=== PATIENT | female | born 1985 | race Caucasian/White ===

== ENCOUNTER 2016-10-21 16:02 | Inpatient (IN) | payer MEDICAID ==
[~2016-10-21] VITALS: Ht 154.9 cm; Wt 74.7 kg
[~2016-10-21 16:02] MED LIST: FERR240T9 PO; PREN1TAB17 PO
[2016-10-21 16:22] VITALS: Ht 154.9 cm; Wt 74.7 kg
[2016-10-21 16:23] VITALS: BP 130/79; PULSE 80; RESP 20
[2016-10-21] MEDS ORDERED: LACTATED RINGER'S 1,000 ML IV SCH (17:18)
[2016-10-21] MEDS ORDERED: OXYTOCIN 30 UNITS/LR 500 ML IV PRN ×2 (17:30→20:30)
[2016-10-21] MEDS ORDERED: LIDOCAINE 1% (MPF) 30 ML INJ INJ PRN (17:30)
[2016-10-21] MEDS ORDERED: ACETAMINOPHEN/CODEINE #3 TAB PO PRN (17:30)
[2016-10-21] MEDS ORDERED: BUTORPHANOL 2 MG INJ IV PRN (17:30)
[2016-10-21] MEDS ORDERED: METHYLERGONOVINE 0.2 MG INJ IM PRN ×2 (17:30→20:30)
[2016-10-21] MEDS ORDERED: CARBOPROST 250 MCG INJ IM PRN ×2 (17:30→20:30)
[2016-10-21] MEDS ORDERED: OXYTOCIN 30 UNITS/LR 500 ML IV SCH ×3 (17:30→20:04)
[2016-10-21] MEDS ORDERED: AMPICILLIN 2 GM/NS (PMX) 100 ML IV ONE (17:30)
[2016-10-21] MEDS ORDERED: IBUPROFEN 600 MG TAB PO PRN (17:30)
[2016-10-21] MEDS ORDERED: MISOPROSTOL 200 MCG TAB PR PRN ×2 (17:30→20:30)
[2016-10-21 17:55] LABS: ADD SCAN DIFF NO
[2016-10-21 17:58] LABS: BASOPHILS % 0.2 % (0.0-2.0); EOSINOPHILS # 0.1 10^3/ul (0.0-0.5); EOSINOPHILS % 0.5 % (0.0-7.0); HEMATOCRIT 32.3 % (37.0-47.0); HEMOGLOBIN 9.7 g/dl (12.0-16.0); LYMPHOCYTES # 3.5 10^3/ul (0.8-2.9); LYMPHOCYTES % 27.3 % (15.0-51.0); MEAN CORPUSCULAR VOLUME 73.4 fl (82.0-101.0); MEAN PLATELET VOLUME 9.8 fl (7.4-10.4); MONOCYTE # 0.6 10^3/ul (0.3-0.9); MONOCYTES % 4.7 % (0.0-11.0); NEUTROPHIL # 8.6 10^3/ul (1.6-7.5); NEUTROPHILS % 66.6 % (39.0-77.0); NUCLEATED RED BLOOD CELLS% 0.2 /100WBC (0.0-0.0); PLATELET COUNT 407 10^3/UL (140-415); RED CELL DISTRIBUTION WIDTH 17.9 % (11.5-14.5); WHITE BLOOD COUNT 12.9 10^3/ul (4.8-10.8)
[2016-10-21] MEDS ORDERED: LACTATED RINGER'S 1,000 ML IV PRN (18:00)
[2016-10-21 18:08] LABS: INR 0.9; PROTIME 12.1 Sec (12.2-14.2); PT RATIO 0.9
[2016-10-21] MEDS ORDERED: FENTAnyl 2MCG/ML-ROPIV 0.2% 100 ML ONE (18:54)
--- NOTE | 2016-10-21 20:15 | LDN ---
Date/Time of Note Date/Time of Note DATE: 10/21/16 TIME: 20:12 Delivery Summary of a viable baby boy over an intact perineum, weighing 3170 grams or 7#, 19 " long, and with Apgars of 9/9. Placenta Delivered: Spontaneously (Trailing membranes had to be removed manually.) Meconium: none Perineum intact?: Yes Anesthesia type: Epidural Estimated blood loss: 200 Sponge & Needle done & correct: Yes All needle counts correct: Yes Any foreign bodies felt in the: No (vagina) Problems: Infant Delivery Information Sex Infant Sex: male Apgars 1 Minute: 9 5 Minute: 9 Suctioning Nose & mouth suctioned at héctor: No Delee suction performed: No Umbilical Cord Umbilical cord with: 3 Vessels Cord presentations: no nuchal cord Cord Blood was obtained: Yes Mother & Baby Disposition Disposition Mom & Baby to Maternity; Good: Yes Baby to NICU: No THOM MEDINA MD Oct 21, 2016 20:15
--- NOTE | 2016-10-21 20:21 | HP ---
Date/Time of Note Date/Time of Note DATE: 10/21/16 TIME: 20:16 OB - History Hx of Present Free Text/Dictation 31 y.o. with an IU at 38w 6d came in with UC's since 0300 and a VE of 100% /3cm. Admitted for expectant management and progressed on own. Estimated Due Date: Oct 29, 2016 : 4 Para: 3 Care: Good Care (but prenatals not available.) Ultrasounds: Normal mid trimester US Obstetrical Complications: None Medical Complications: None Past Family/Social History * record not available so reviewed with pt only. Blood Type: Unknown Rubella: unknown RPR/VDRL: Unknown GBS Status: Unknown HBsAG: Unknown OB Admission Exam Vital Signs Vital Signs Vital Signs Date Time Temp Pulse Resp B/P Pulse Ox O2 Delivery O2 Flow Rate FiO2 10/21/16 16:23 98.1 80 20 130/79 100 Physical Exam HEENT: WNL Heart: Rhythm Normal Abdomen: WNL Extremities: Normal Reflexes: Normal Cervical Dilatation: 3cm Effacement: 100% Station: -3 Membranes: Intact Amniotic Fluid: Clear Heart Rate: 140's Accelerations: Accelerations Present Decelerations: No Decelerations Varibility: Moderate Contractions on Admission: < 5 Minutes Apart Last 72 hours Lab Results CBC & BMP 10/21/16 17:45 OB Assessment/Plan Reason for admission: active labor Plan: Expectant Management THOM MEDINA MD Oct 21, 2016 20:21
[2016-10-21] MEDS ORDERED: OXYCODONE/ASPIRIN (4.88/325) TAB PO PRN (20:30)
[2016-10-21] MEDS ORDERED: LANOLIN 7 GM TUBE TOP PRN (20:30)
[2016-10-21] MEDS ORDERED: FENTAnyl 2MCG/ML-ROPIV 0.2% 100 ML BAG EPI SCH (21:00)
[2016-10-21] MEDS ORDERED: NALOXONE (0.4 MG/ML) INJ IV PRN (21:00)
[2016-10-21] MEDS ORDERED: AMPICILLIN 1 GM/NS (PMX) 50 ML IV SCH (21:30)
[2016-10-21 21:45] VITALS: BP 128/63; PULSE 73; RESP 18
[2016-10-22] VITALS: BP 115/57; PULSE 83; RESP 18
[2016-10-22] MEDS: IBUPROFEN 600 MG TAB PO PRN ×4 (00:36→17:46)
[2016-10-22] MEDS: LACTATED RINGER'S 1,000 ML IV* SCH ×4 (04:04→21:53)
[2016-10-22 07:45] VITALS: BP 108/61; PULSE 61; RESP 19
[2016-10-22 08:15] LABS: ADD SCAN DIFF NO
[2016-10-22 08:19] LABS: BASOPHILS % 0.2 % (0.0-2.0); EOSINOPHILS # 0.1 10^3/ul (0.0-0.5); EOSINOPHILS % 0.4 % (0.0-7.0); HEMATOCRIT 28.7 % (37.0-47.0); HEMOGLOBIN 8.5 g/dl (12.0-16.0); LYMPHOCYTES # 2.7 10^3/ul (0.8-2.9); MEAN CORPUSCULAR HGB CONC 29.6 g/dl (32.0-37.0); MEAN CORPUSCULAR VOLUME 74.4 fl (82.0-101.0); MONOCYTE # 0.8 10^3/ul (0.3-0.9); MONOCYTES % 5.9 % (0.0-11.0); NEUTROPHIL # 9.9 10^3/ul (1.6-7.5); PLATELET COUNT 336 10^3/UL (140-415); RED BLOOD COUNT 3.86 10^6/ul (4.20-5.40); RED CELL DISTRIBUTION WIDTH 17.9 % (11.5-14.5); WHITE BLOOD COUNT 13.6 10^3/ul (4.8-10.8)
--- NOTE | 2016-10-22 15:53 | DS ---
Date/Time of Note Date/Time of Note home next day DATE: 10/22/16 TIME: 15:52 Obstetrical Discharge Record Final Diagnosis Final Diagnosis: Term delivered Other Final Diagnosis S/P vaginal delivery Vaginal Delivery Obstetrical Delivery: Spontaneous Condition on Discharge Physical Assessment Last Vitals: see nurses notes Voiding: Yes Bowel Movement: Yes Breast: Soft, non-tender, Filling Fundus: Firm Abdomen and Incision: soft BS + Episiotomy: NA Calf Tenderness: No Patient Condition: Good JENNIFER CHURCHILL MD Oct 22, 2016 15:53
--- NOTE | 2016-10-22 15:55 | PD.PPDC ---
CHECK WEIGHER Discharge Instruction Provider Information Physician Information 31 y/o female had vaginal delivery Diagnosis Final Diagnosis: S/P vaginal delivery Condition Patient Condition: Good Diet Diet: Resume Regular Diet Activity/Restrictions Activity: Normal Activity May Shower Restrictions: Nothing in the Vagina Return to Work or School: Dec 10, 2016 Follow-up Follow-up with Physician: 4, Week/Weeks (in clinic) Return to clinic for OB Instructions: Breast Tenderness Depression JENNIFER CHURCHILL MD Oct 22, 2016 15:55
[2016-10-22] MEDS ORDERED: IBUP-1542 PO (15:56)
[2016-10-22 16:00] VITALS: BP 111/64; PULSE 78; RESP 19
[2016-10-22 19:50] VITALS: BP 110/60; PULSE 91; RESP 18
[2016-10-23 04:15] VITALS: BP 92/50; PULSE 89; RESP 18
[2016-10-23 08:15] VITALS: BP 112/68; PULSE 80; RESP 18
[2016-10-23] MEDS ORDERED: DIPHTH/TET/ACEL PERTUSS (ADULT) 0.5 ML VIAL IM* ONE (09:00)
[2016-10-23] MEDS: IBUPROFEN 600 MG TAB PO PRN ×2 (12:34→18:16)
[2016-10-23 16:45] VITALS: BP 124/68; PULSE 75; RESP 18
== END 2016-10-23 20:20 | disposition home or self-care (01) | DRG 775 ==
LOC: OBT 16:02 → L-D 16:03 → OBT 17:00 → L-D 17:00 → PP1 21:46
PROVIDERS: ADMIT Obstetrics & Gynecology; ATTEND Obstetrics & Gynecology
PROC: 10E0XZZ Delivery of Products of Conception, External Approach (ICD-10-PCS; principal; 2016-10-21)
PROC: 3E00X4Z Introduction of Serum, Toxoid and Vaccine into Skin and Mucous Membranes, External Approach (ICD-10-PCS; 2016-10-23)
DX: O80 Encounter for full-term uncomplicated delivery (principal); Z23 Encounter for immunization; Z3A.38 38 weeks gestation of pregnancy; Z37.0 Single live birth
CPT/HCPCS: 62319; 85025; 85610; 85730; 86592; 86900; 86901; 87340; 90715; G0463; J0290; J2590; J3010; J7120

== ENCOUNTER 2016-11-10 17:32 | Emergency (ER) | payer MEDICAID ==
[~2016-11-10] VITALS: Ht 157.5 cm; Wt 70.0 kg
[~2016-11-10 17:32] MED LIST changes: +IBUP-1542 PO
[2016-11-10 17:34] VITALS: Ht 157.5 cm; Wt 70.0 kg
[2016-11-10] MEDS ORDERED: SOD CHLORIDE 0.9% 1,000 ML IV STA (18:35)
[2016-11-10] MEDS ORDERED: morphine 4 MG/ML VIAL IV STA (18:35)
[2016-11-10] MEDS ORDERED: FAMOTIDINE 20 MG TAB PO STA (18:35)
[2016-11-10] MEDS ORDERED: ONDANSETRON 4 MG INJ IV STA (18:35)
[2016-11-10 19:04] LABS: ADD SCAN DIFF NO
[2016-11-10 19:05] LABS: BASOPHILS % 0.2 % (0.0-2.0); EOSINOPHILS # 0.2 10^3/ul (0.0-0.5); EOSINOPHILS % 2.3 % (0.0-7.0); HEMATOCRIT 33.6 % (37.0-47.0); LYMPHOCYTES # 1.9 10^3/ul (0.8-2.9); LYMPHOCYTES % 28.8 % (15.0-51.0); MEAN CORPUSCULAR HEMOGLOBIN 22.2 pg (29.0-33.0); MEAN CORPUSCULAR HGB CONC 29.8 g/dl (32.0-37.0); MEAN CORPUSCULAR VOLUME 74.7 fl (82.0-101.0); MEAN PLATELET VOLUME 9.8 fl (7.4-10.4); MONOCYTE # 0.5 10^3/ul (0.3-0.9); MONOCYTES % 7.8 % (0.0-11.0); NEUTROPHILS % 60.6 % (39.0-77.0); PLATELET COUNT 390 10^3/UL (140-415); RED CELL DISTRIBUTION WIDTH 18.7 % (11.5-14.5); WHITE BLOOD COUNT 6.6 10^3/ul (4.8-10.8)
[2016-11-10 19:14] LABS: ADD UMIC YES; URINE BILIRUBIN (Dip) NEGATIVE (NEGATIVE); URINE BLOOD (Dip) 1+ (NEGATIVE); URINE GLUCOSE (Dip) NEGATIVE (NEGATIVE); URINE KETONES (Dip) NEGATIVE (NEGATIVE); URINE LEUKOCYTE ESTERASE (Dip) 2+ (NEGATIVE); URINE NITRITE (Dip) NEGATIVE (NEGATIVE); URINE TOTAL PROTEIN (Dip) TRACE (NEGATIVE); URINE UROBILINOGEN (Dip) 0.2 E.U./dL (0.1-1.0)
[2016-11-10 19:15] LABS: ALBUMIN 3.6 g/dl (3.3-4.9); URINE COLOR YELLOW (YELLOW)
[2016-11-10 19:16] LABS: POTASSIUM 3.5 mmol/L (3.5-5.1)
--- NOTE | 2016-11-10 19:16 | ERD ---
ER Documentation Chief Complaint Date/Time DATE: 11/10/16 TIME: 19:13 Chief Complaint ap x 3 days HPI This is a 31-year-old female presents to the ER with mid abdominal pain for the last 3 days. Patient states that she has had nausea and vomiting. Vomiting is nonbilious nonbloody. She denies any diarrhea. History patient does admit to fever and chills. Pain is crampy and intermittent, it is nonradiating. Pain can be severe at times rated as 5 out of 10. Patient has not traveled anywhere. There are no sick contacts at home. Patient had a baby 3 weeks ago, she denies any pelvic pain, urinary frequency or dysuria, vaginal bleeding. ROS 12 point review of systems was done, all negative except per HPI. Medications Home Meds Active Scripts Nitrofurantoin Monohyd Macrocr* (Macrobid*) 100 Mg Capsr, 100 MG PO BID for 7 Days, CAP Prov:COLTEN GLASS 11/10/16 Dicyclomine Hcl* (Bentyl*) 10 Mg Capsule, 10 MG PO QID for 5 Days, CAP Prov:COLTEN GLASS 11/10/16 Ondansetron Hcl* (Zofran*) 4 Mg Tablet, 4 MG PO Q6H for NAUSEA AND/OR VOMITING, #30 TAB Prov:COLTEN GLASS 11/10/16 Ibuprofen* (Ibuprofen*) 600 Mg Tablet, 600 MG PO Q6 Y for PAIN LEVEL 4-6, #20 TAB 0 Refills Prov:JENNIFER CHURCHILL MD 10/22/16 Reported Medications Ferrous Gluconate (Iron) 1 Tab Tablet, 1 TAB PO 12/09/14 Vit-Iron Fumarate-FA ( Tablet) 1 Each Tablet, 1 TAB PO DAILY, TAB 12/09/14 Allergies Allergies: Coded Allergies: No Known Allergy (Unverified , 12/09/14) PMhx/Soc Medical and Surgical Hx: pt denies Medical Hx, pt denies Surgical Hx History of Surgery: No Anesthesia Reaction: No Hx Neurological Disorder: No Hx Respiratory Disorders: No Hx Cardiac Disorders: No Hx Psychiatric Problems: No Hx Miscellaneous Medical Probl: No Hx Alcohol Use: No Hx Substance Use: No Hx Tobacco Use: No Smoking Status: Never smoker Physical Exam Vitals Vital Signs Date Time Temp Pulse Resp B/P Pulse Ox O2 Delivery O2 Flow Rate FiO2 11/10/16 17:34 98.5 94 20 120/60 99 Physical Exam GENERAL: The patient is well developed and appropriate for usual state of health , in no apparent distress. HEENT: Atraumatic. CHEST: Clear to auscultation bilaterally. There are no rales, wheezes or rhonchi. HEART: Regular rate and rhythm. No murmurs, clicks, rubs or gallops. ABDOMEN: Soft and nondistended, patient is tender to palpation all 4 quadrants.. Good bowel sounds. No rebound or guarding. No gross peritonitis. No gross organomegaly or masses. No Avila sign or McBurney point tenderness. BACK: No midline or flank tenderness. NEURO: Alert and oriented. SKIN: The skin is warm and dry. Result Diagram: 11/10/166 11/10/166 Results 24 hrs Laboratory Tests Test 11/10/16 18:46 White Blood Count 6.610^3/ul Red Blood Count 4.5010^6/ul Hemoglobin 10.0g/dl Hematocrit 33.6% Mean Corpuscular Volume 74.7fl Mean Corpuscular Hemoglobin 22.2pg Mean Corpuscular Hemoglobin Concent 29.8g/dl Red Cell Distribution Width 18.7% Platelet Count 52249^3/UL Mean Platelet Volume 9.8fl Neutrophils % 60.6% Lymphocytes % 28.8% Monocytes % 7.8% Eosinophils % 2.3% Basophils % 0.2% Nucleated Red Blood Cells % 0.0/100WBC Neutrophils # 4.010^3/ul Lymphocytes # 1.910^3/ul Monocytes # 0.510^3/ul Eosinophils # 0.210^3/ul Basophils # 0.010^3/ul Nucleated Red Blood Cells # 0.010^3/ul Urine Color YELLOW Urine Clarity SLIGHTLY CLOUDY Urine pH 5.5 Urine Specific [place] 1.025 Urine Ketones NEGATIVE Urine Nitrite NEGATIVE Urine Bilirubin NEGATIVE Urine Urobilinogen 0.2 E.U./dL Urine Leukocyte Esterase 2+ Urine Microscopic RBC 2-5/HPF Urine Microscopic WBC 25-50/HPF Urine Squamous Epithelial Cells FEW Urine Bacteria RARE Urine Hemoglobin 1+ Urine Glucose NEGATIVE% Urine Total Protein TRACE Sodium Level 143mmol/L Potassium Level 3.5mmol/L Chloride Level 107mmol/L Carbon Dioxide Level 24mmol/L Anion Gap 16 Blood Urea Nitrogen 8mg/dl Creatinine 0.55mg/dl Glucose Level 97mg/dl Calcium Level 8.1mg/dl Total Bilirubin 0.3mg/dl Direct Bilirubin 0.00mg/dl Indirect Bilirubin 0.3mg/dl Aspartate Amino Transf (AST/SGOT) 37IU/L Alanine Aminotransferase (ALT/SGPT) 36IU/L Alkaline Phosphatase 163IU/L Total Protein 7.1g/dl Albumin 3.6g/dl Globulin 3.50g/dl Albumin/Globulin Ratio 1.02 Lipase 72U/L Current Medications Medications (Trade) Dose Ordered Sig/Puneet Route PRN Reason Start Time Stop Time Status Last Admin Dose Admin Sodium Chloride (NS) 1,000 ml @ 1,000 mls/hr Q1H STAT IV 11/10/16 18:35 11/10/16 19:34 DC 11/10/16 18:59 Morphine Sulfate (morphine) 4 mg ONCE STAT IV 11/10/16 18:35 11/10/16 18:37 DC 11/10/16 18:59 Ondansetron HCl (Zofran Inj) 4 mg ONCE STAT IV 11/10/16 18:35 11/10/16 18:37 DC 11/10/16 18:59 Famotidine (Pepcid) 20 mg ONCE STAT PO 11/10/16 18:35 11/10/16 18:37 DC 11/10/16 18:59 Procedures/MDM Differential Diagnosis: GERD, gastritis, peptic ulcer disease, pancreatitis, cholecystitis, choledocholithiasis, biliary colic, cholangitis, [id number] , ACS/IL, Pnuemonia. This is a 31-year-old female presents to the ER with mid abdominal pain. At this time there is no evidence of acute abdomen. Her physical examination was benign. Patient is afebrile and well-appearing. Patient feels significantly better after treatment in the ER with pain medication and nausea medication. Patient will be sent home with Macrobid for UTI found, Yasmin Daley. Patient is to follow-up with her primary care doctor within 1-2 days or return to ER sooner if symptoms worsen. My medical decision making sure with the patient she understands and agrees with plan. Departure Diagnosis: Primary Impression: Abdominal pain Condition: Stable COLTEN GLASS 25, 2017 19:16
[2016-11-10 19:18] LABS: ALBUMIN/GLOBULIN RATIO 1.02; BILIRUBIN,INDIRECT 0.3 mg/dl (0-1.1); BILIRUBIN,TOTAL 0.3 mg/dl (0.2-1.3); CREATININE 0.55 mg/dl (0.44-1.00); TOTAL PROTEIN 7.1 g/dl (6.1-8.1)
[2016-11-10 19:19] LABS: CALCIUM 8.1 mg/dl (8.4-10.2)
[2016-11-10 19:28] LABS: BACTERIA,URINE RARE; SQUAMOUS EPITHELIAL CELL,UR FEW
--- NOTE | 2016-11-10 20:38 | RADRPT ---
PROCEDURE: CT Abdomen and Pelvis without contrast CLINICAL INDICATION: Abdominal pain TECHNIQUE: Transaxial images were obtained through the abdomen and pelvis on a multi-slice scanner without the intravenous contrast administration. No oral contrast had previously been given. Sagit lisa and coronal re-formations were subsequently reconstructed. One or more of the following dose reduction techniques were used: - Automated exposure control. - Adjustment of the mA and/or kV according to patient size. - Use of iterative reconstruction technique. Radiation dose: CTDIvol = 8.92 mGy; DLP = 488.84 mGy-cm. COMPARISON: No prior studies are available for comparison. FINDINGS: Lung bases: The visualized lung bases appear unremarkable. Liver: Normal in size and in attenuation. There is no focal lesion. Gallbladder: The wall is not thickened. No radiopaque stones are identified. Bile ducts: The intra and extrahepatic bile ducts are normal in caliber. Pancreas: Appears normal with no mass or inflammation evident. Spleen: The spleen is borderline enlarged. Adrenals: Normal with no mass identified. Kidneys, ureters and bladder: The kidneys are normal in size and there is no mass, pathological calc ification, or hydronephrosis evident. There is no perinephric stranding. The ureters are normal in c aliber and no ureteroliths are identified. The bladder appears unremarkable. Reproductive organs: The uterus is quite enlarged. Stomach and bowel: The bowel appears unremarkable with no evidence of bowel obstruction or inflammat ion. The stomach appears unremarkable. Appendix: A normal vermiform appendix is evident. Peritoneum: There is a trace of free intraperitoneal fluid with no free air identified. There is a t iny fat containing umbilical hernia. Aorta: Normal in caliber with no aneurysmal dilatation. IVC: Unremarkable. Lymph nodes: No pathologically enlarged nodes are identified. Osseous structures: The osseous elements appear intact. There is sclerosis on either side of each s acroiliac joint. IMPRESSION: 1. Enlarged uterus which is likely . 2. There is no evidence of bowel obstruction or inflammation. 3. No evidence of urinary outflow obstruction or ureterolithiasis. 4. Trace amount of free intraperitoneal fluid with no free air identified. There is a tiny fat con taining umbilical hernia. 5. Borderline splenomegaly. 6. Sclerosis is seen about the either side of each sacroiliac joint suspicious for symmetrical sacr oiliitis. Amanda Aguilera Physician Date Time Electronically viewed and signed by Amanda Aguilera Physician on 11/10/2016 20:38 /
[2016-11-10] MEDS ORDERED: ONDA4TAB8 PO (21:03)
[2016-11-10] MEDS ORDERED: DICY10CA60 PO (21:03)
[2016-11-10] MEDS ORDERED: NITR-58 PO (21:04)
[2016-11-10 21:16] VITALS: BP 113/58; PULSE 79; TEMP 98.7
== END 2016-11-10 21:26 | disposition home or self-care (01) ==
LOC: FTE 17:32
DX: R10.84 Generalized abdominal pain (principal)
CPT/HCPCS: 36415; 74176; 80053; 81001; 83690; 85025; 96374; 96375; J2270; J2405; J7030; Z7502; Z7610; 81003

== ENCOUNTER 2016-11-27 13:04 | Day surgery (SDC) | payer MEDICAID ==
[2016-11-26 15:03] VITALS: Ht 154.9 cm; Wt 66.8 kg
[~2016-11-27] VITALS: Ht 154.9 cm; Wt 66.8 kg
== END 2016-11-27 15:00 | disposition home or self-care (01) ==
LOC: SDS 13:04
PROVIDERS: ATTEND Obstetrics & Gynecology
DX: Z30.2 Encounter for sterilization (principal); Z53.9 Procedure and treatment not carried out, unspecified reason